=== PATIENT | male | born 2000 | race American Indian/Alaskan Native ===

== ENCOUNTER 2019-11-04 01:22 | Emergency (ER) | payer SELFPAY ==
[2019-11-04] MEDS ORDERED: IBUPROFEN 800 MG TAB ONE (01:34)
[2019-11-04] MEDS ORDERED: IBUPROFEN 800 MG TAB PO ONE (01:42)
--- NOTE | 2019-11-04 01:46 | Emergency Department Report ---
ED ENT HPI - General Chief complaint: Sore Throat Stated complaint: FEVER, SORE THROAT Time Seen by Provider: 11/04/19 01:45 Source: patient Mode of arrival: Ambulatory Limitations: No Limitations - History of Present Illness Initial comments: 19-year-old -[place] male brought in by parents for fever and sore throat 2 days. Patient took Tylenol prior to arrival. Patient denies any difficulty swallowing. Patient denies any painful swallowing. Patient does admit to sick contact his bowels. He has no past medical history takes no medications on a daily basis and has no known drug allergies. MD complaint: sore throat Onset/Timin -: days(s) Location: throat Severity: moderate Quality: burning, sharp Improves with: NSAID Worsens with: none Associated Symptoms: fever, cough, sore throat. denies: gum swelling, toothache, pain with swallowing, discharge from ear - Related Data Previous Rx's Medication Instructions Recorded Last Taken Type Amoxicillin/K Clav Tab [Augmentin 1 each PO Q12HR #20 tablet 02/07/15 Unknown Rx 500 mg] Acetaminophen/Codeine [Tylenol #3] 1 tab PO Q6H PRN #14 tab 12/02/15 Unknown Rx Clindamycin [Clindamycin CAP] 300 mg PO Q8H #21 cap 06/13/19 Unknown Rx Ibuprofen [Motrin 800 MG tab] 800 mg PO Q8HR PRN #30 tablet 06/13/19 Unknown Rx Allergies Allergy/AdvReac Type Severity Reaction Status Date / Time No Known Allergies Allergy Verified 02/07/15 12:05 ED Dental HPI - General Chief complaint: Sore Throat Stated complaint: FEVER, SORE THROAT Time Seen by Provider: 11/04/19 01:45 Source: patient Mode of arrival: Ambulatory Limitations: No Limitations - Related Data Previous Rx's Medication Instructions Recorded Last Taken Type Amoxicillin/K Clav Tab [Augmentin 1 each PO Q12HR #20 tablet 02/07/15 Unknown Rx 500 mg] Acetaminophen/Codeine [Tylenol #3] 1 tab PO Q6H PRN #14 tab 12/02/15 Unknown Rx Clindamycin [Clindamycin CAP] 300 mg PO Q8H #21 cap 06/13/19 Unknown Rx Ibuprofen [Motrin 800 MG tab] 800 mg PO Q8HR PRN #30 tablet 06/13/19 Unknown Rx Allergies Allergy/AdvReac Type Severity Reaction Status Date / Time No Known Allergies Allergy Verified 02/07/15 12:05 ED Review of Systems ROS: Stated complaint: FEVER, SORE THROAT Other details as noted in HPI Comment: All other systems reviewed and negative ED Past Medical Hx - Past Medical History Previous Medical History?: No - Surgical History Past Surgical History?: Yes Additional Surgical History: rectal abscess - Social History Smoking Status: Current Every Day Smoker Substance Use Type: None - Medications Home Medications: Home Medications Medication Instructions Recorded Confirmed Last Taken Type Amoxicillin/K Clav Tab [Augmentin 1 each PO Q12HR #20 tablet 02/07/15 Unknown Rx 500 mg] Acetaminophen/Codeine [Tylenol #3] 1 tab PO Q6H PRN #14 tab 12/02/15 Unknown Rx Clindamycin [Clindamycin CAP] 300 mg PO Q8H #21 cap 06/13/19 Unknown Rx Ibuprofen [Motrin 800 MG tab] 800 mg PO Q8HR PRN #30 tablet 06/13/19 Unknown Rx ED Physical Exam - General Limitations: No Limitations General appearance: alert, in no apparent distress - Head Head exam: Present: atraumatic, normocephalic - Eye Eye exam: Present: normal appearance - ENT ENT exam: Present: mucous membranes moist - Expanded ENT Exam Expanded Mouth exam: Present: normal external inspection Throat exam: Negative: tonsillomegaly, tonsillar exudate - Neck Neck exam: Absent: tenderness, lymphadenopathy - Respiratory Respiratory exam: Present: normal lung sounds bilaterally - Cardiovascular Cardiovascular Exam: Present: regular rate, normal rhythm. Absent: systolic murmur, diastolic murmur, rubs, gallop - Neurological Exam Neurological exam: Present: alert, oriented X3, normal gait - Psychiatric Psychiatric exam: Present: normal affect, normal mood - Skin Skin exam: Present: warm, dry, intact, normal color. Absent: rash ED Course Vital Signs 11/04/19 01:26 Temperature 102.6 F H Pulse Rate 119 H Respiratory 18 Rate Blood Pressure 151/70 O2 Sat by Pulse 96 Oximetry ED Medical Decision Making - Medical Decision Making 19-year-old -[place] male brought in by parents for fever and sore throat 2 days. Patient took Tylenol prior to arrival. Patient denies any difficulty swallowing. Patient denies any painful swallowing. Patient does admit to sick contact his bowels. He has no past medical history takes no medications on a daily basis and has no known drug allergies. Critical care attestation.: If time is entered above; I have spent that time in minutes in the direct care of this critically ill patient, excluding procedure time. ED Disposition Clinical Impression: Acute tonsillitis Disposition: - TO HOME OR SELFCARE Is pt being admited?: No Does the pt Need Aspirin: No Condition: Stable Instructions: Tonsillitis (ED) Additional Instructions: Strep test negative. Continue with ibuprofen and Tylenol as needed for pain and fever. Follow-up with his primary care provider. Referrals: PRIMARY CARE, [Primary Care Provider] - 3-5 Days [facility] [Outside] - 3-5 Days Forms: Accompanied Note, Work/School Release Form(ED)
[2019-11-04 02:43] VITALS: BP 123/67
== END 2019-11-04 02:40 | disposition home or self-care (01) ==
LOC: ED 01:22
DX: J03.90 Acute tonsillitis, unspecified (principal); F17.200 Nicotine dependence, unspecified, uncomplicated
CPT/HCPCS: 87116; 87430

== ENCOUNTER 2021-06-17 11:12 | Emergency (ER) | payer OTHER ==
[2021-06-17 11:54] VITALS: BP 146/91
--- NOTE | 2021-06-17 12:20 | Emergency Department Report ---
Chief Complaint: Urogenital-Male Stated Complaint: POSS STD Time Seen by Provider: 06/17/21 12:03 - HPI History of Present Illness: 21-year-old -[place] male patient presents with complaints of penile discharge starting Tuesday. He admits to unprotected sexual activity recently and leaves he has an STI. He denies any penile bleeding, penile/scrotal lesions or swelling, scrotal tenderness, fever/chills/sweats, joint pain/swelling, abdominal pain, or fever/chills/sweats. - Exam Vital Signs: Vital Signs 06/17/21 11:52 Temperature 99.2 F Pulse Rate 86 Respiratory 20 Rate Blood Pressure 146/91 O2 Sat by Pulse 98 Oximetry MSE screening note: Focused history and physical exam performed. Due to findings the following was ordered: ED Medical Decision Making - Medical Decision Making 21-year-old -[place] male patient presents with complaints of penile discharge starting Tuesday. He admits to unprotected sexual activity recently and leaves he has an STI. He denies any penile bleeding, penile/scrotal lesions or swelling, scrotal tenderness, fever/chills/sweats, joint pain/swelling, abdominal pain, or fever/chills/sweats. exam deferred by patient. Physical is otherwise normal. Vitals are within normal limits and he is well-appearing. Recommend patient follows up for outpatient STI testing within 2 days. Patient provided with health department information and other health clinics. He is stable for discharge home. Strict return precautions were discussed in detail with patient who verbalized understanding peer ED Disposition for MSE Clinical Impression: Penile discharge, without blood Disposition: DC-01 TO HOME OR SELFCARE Is pt being admited?: No Condition: Stable Instructions: Urethritis, Adult Additional Instructions: Please follow-up with the health department or one of the clinics provided or in urgent care for STD testing Forms: Work/School Release Form(ED) ED Physical Exam - General Limitations: No Limitations General appearance: alert, in no apparent distress - Head Head exam: Present: atraumatic, normocephalic - Eye Eye exam: Present: normal appearance. Absent: scleral icterus - Respiratory Respiratory exam: Absent: respiratory distress - Cardiovascular Cardiovascular Exam: Present: regular rate - GI/Abdominal GI/Abdominal exam: Present: soft. Absent: tenderness - Extremities Exam Extremities exam: Present: full ROM. Absent: tenderness, joint swelling - Neurological Exam Neurological exam: Present: alert, oriented X3 - Psychiatric Psychiatric exam: Present: normal affect, normal mood - Skin Skin exam: Present: warm, dry, intact, normal color. Absent: rash ED Review of Systems ROS: Stated complaint: POSS STD Other details as noted in HPI Constitutional: denies: chills, fever, malaise ENT: denies: throat pain Cardiovascular: denies: chest pain Gastrointestinal: denies: abdominal pain Genitourinary: denies: urgency, frequency, hematuria, testicular pain, testicular mass Musculoskeletal: denies: back pain, joint swelling, arthralgia Skin: denies: change in color Hematological/Lymphatic: denies: swollen glands
== END 2021-06-17 12:05 | disposition home or self-care (01) ==
LOC: ED 11:12
DX: R36.0 Urethral discharge without blood (principal)
CPT/HCPCS: 99281